=== PATIENT | male | born 1980 | race African-American/Black ===

== ENCOUNTER 2016-09-15 10:33 | Emergency (ER) | payer OTHER ==
[~2016-09-15] VITALS: Ht 185.4 cm; Wt 104.3 kg
[~2016-09-15 10:33] MED LIST: AMLO10TA2 PO; ASPI81TA9 PO; ATOR20TA58 PO; CARV12.52 PO; HYDR12.58 PO; LISI10TA2 PO; LOSA50TA2 PO
--- NOTE | 2016-09-15 10:50 | EKG ---
[facility] [address] [place] [address] Test Date: 2016-09-15 Test Time: 10:43:30 Pat Name: TAN GRUBER Department: Room: Gender: M Chief Legal Officer: : 1980 Requested By: MARIANO FLOWER Order Number: [id number] Reading MD: Dahlia Vu Measurements Intervals [place] Rate: 59 P: 82 DE: 186 QRS: 67 QRSD: 82 T: 178 QT: 396 QTc: 392 Interpretive Statements SINUS RHYTHM. MISSING LEAD V4. INVERTED T WAVES OVER THE LATERAL PRECORDIAL LEADS. Electronically Signed On 09-16-2016 21:14:21 CDT by Dahlia Vu
[2016-09-15 10:56] LABS: BASO % 1 % (0-3); EOS % 2 % (0-3); HEMATOCRIT 35.7 % (39.0-53.0); HEMOGLOBIN 12.1 g/dL (13.0-17.5); LYMPH # 1.2 x10^3/uL (1.0-4.8); LYMPH % 16 % (24-48); MEAN CORPUSCULAR HEMOGLOBIN 29 pg (25-35); MEAN CORPUSCULAR HGB CONC 34 g/dL (31-37); MEAN CORPUSCULAR VOLUME 87 fL (79-100); MONO % 8 % (0-9); NEUT % 74 % (31-73); PLATELET COUNT 242 x10^3/uL (140-400); RED BLOOD COUNT 4.13 x10^6/uL (4.30-5.70); RED CELL DISTRIBUTION WIDTH 14.1 % (11.5-14.5); WHITE BLOOD COUNT 7.4 x10^3/uL (4.0-11.0)
[2016-09-15] MEDS ORDERED: ASPIRIN 81 MG TAB.CHEW PO ONE (11:00)
[2016-09-15 11:10] LABS: CALCIUM 9.6 mg/dL (8.5-10.1); GFR 45.5; POTASSIUM 4.9 mmol/L (3.5-5.1)
--- NOTE | 2016-09-15 11:16 | RAD ---
Portable chest, 09/15/2016: History: Chest pain Comparison is made to a study from 06/25/2016. The heart is at the upper limits of normal in size. The pulmonary vascularity has improved and is now within normal limits. No pulmonary infiltrates are present. There is no evidence of pleural fluid. IMPRESSION: No acute cardiopulmonary abnormality is detected.
[2016-09-15 11:17] LABS: ALBUMIN 4.3 g/dL (3.4-5.0); DIRECT BILIRUBIN 0.1 mg/dL (0.0-0.2); TOTAL BILIRUBIN 0.4 mg/dL (0.2-1.0); TOTAL PROTEIN 7.6 g/dL (6.4-8.2)
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
[2016-09-15] MEDS ORDERED: ASPI81TA2 PO (11:47)
[2016-09-15 13:00] VITALS: BP 122/67
== END 2016-09-15 13:18 | disposition home or self-care (01) ==
LOC: ER 10:33 → EEVIPCON 10:33 → ER 13:18
DX: R07.9 Chest pain, unspecified (principal); I10 Essential (primary) hypertension; F12.10 Cannabis abuse, uncomplicated
CPT/HCPCS: 36415; 71010; 80048; 80076; 83690; 83880; 84484; 85027; 93005; 99285-25

== ENCOUNTER 2017-01-25 15:52 | Inpatient (IN) | payer OTHER ==
[2017-01-25] VITALS (7 sets, daily range): BP systolic 103–181; BP diastolic 48–100
[~2017-01-25] VITALS: Ht 185.4 cm; Wt 100.2 kg
[~2017-01-25 15:52] MED LIST changes: +ASPI-612 PO; +ASPI-630 PO; -ASPI81TA9 PO
[2017-01-25] MEDS ORDERED: METOPROLOL TARTRATE 5 MG/5 ML VIAL. IVP ONE (16:15)
--- NOTE | 2017-01-25 16:17 | EKG ---
[facility] [address] [place] [address] Test Date: 2017-01-25 Test Time: 15:58:34 Pat Name: TAN GRUBER Department: Room: Gender: M Anne[employer] Torch Operator: : 1980 Requested By: NICKO OLIVAREZ Order Number: [id number] Reading MD: Adan Stubbs Measurements Intervals [place] Rate: 73 P: 30 ND: 188 QRS: 63 QRSD: 86 T: 54 QT: 350 QTc: 389 Interpretive Statements SINUS RHYTHM NON-SPECIFIC ST/T CHANGES Electronically Signed On 01-28-2017 8:43:05 CDT by Adan Stubbs
[2017-01-25 16:18] LABS: BASO % 1 % (0-3); EOS % 1 % (0-3); HEMATOCRIT 42.4 % (39.0-53.0); LYMPH # 1.2 x10^3/uL (1.0-4.8); LYMPH % 20 % (24-48); MEAN CORPUSCULAR HEMOGLOBIN 29 pg (25-35); MEAN CORPUSCULAR HGB CONC 33 g/dL (31-37); MEAN CORPUSCULAR VOLUME 87 fL (79-100); MONO % 9 % (0-9); NEUT % 69 % (31-73); PLATELET COUNT 264 x10^3/uL (140-400); RED BLOOD COUNT 4.89 x10^6/uL (4.30-5.70); RED CELL DISTRIBUTION WIDTH 13.5 % (11.5-14.5); WHITE BLOOD COUNT 5.9 x10^3/uL (4.0-11.0)
[2017-01-25] MEDS: NITROGLYCERIN SUBLINGUAL 0.4 MG BOTTLE OF 25. SL PRN ×2 (16:19→16:47)
[2017-01-25 16:27] LABS: PROTHROMBIN TIME PATIENT 12.5 SEC (11.7-14.0)
--- NOTE | 2017-01-25 16:52 | RAD ---
PORTABLE CHEST 1V Clinical Indication: cp Comparison: Chest radiograph dated 09/15/2016 Findings: Low lung volume. Heterogeneous airspaces opacities in the right perihilar region. Normal pulmonary vasculature. No pleural effusion or pneumothorax. Stable cardiomegaly. The great vessels of the thorax are stable. No acute osseous abnormality. IMPRESSION: 1. Heterogeneous airspace opacities in the right perihilar region. Findings could relate to atelectasis, although an infectious process would be difficult to exclude. Recommend radiographic follow-up to resolution. 2. Stable cardiomegaly.
[2017-01-25 17:12] LABS: CREATININE 1.6 mg/dL (0.7-1.3); GFR 58.8; POTASSIUM 4.7 mmol/L (3.5-5.1)
[2017-01-25 17:18] LABS: DIRECT BILIRUBIN 0.1 mg/dL (0.0-0.2); MAGNESIUM 2.1 mg/dL (1.8-2.4); TOTAL BILIRUBIN 0.2 mg/dL (0.2-1.0); TOTAL PROTEIN 7.6 g/dL (6.4-8.2)
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
[2017-01-25] MEDS ORDERED: NITROGLYCERIN SUBLINGUAL 0.4 MG BOTTLE OF 25. SL PRN (18:45)
[2017-01-25] MEDS ORDERED: ASPIRIN 325 MG TABLET PO ONE (21:00)
[2017-01-25] MEDS ORDERED: CARVEDILOL 12.5 MG TABLET. PO SCH (21:00)
[2017-01-25] MEDS: ATORVASTATIN CALCIUM 20 MG TABLET PO SCH (21:51)
[2017-01-25] MEDS: oxyCODONE/APAP 5/325 1 TAB TABLET PO PRN (21:52)
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
[2017-01-26] VITALS (23 sets, daily range): BP systolic 126–196; BP diastolic 51–109
[2017-01-26 01:32] LABS: CALCIUM 9.4 mg/dL (8.5-10.1); CREATININE 1.7 mg/dL (0.7-1.3); GFR 54.9; POTASSIUM 4.4 mmol/L (3.5-5.1)
--- NOTE | 2017-01-26 01:38 | ACF ---
Admission Forms Criteria HYPERTENSION Clinical Indications for Admission to Inpatient Care ( Place "X" for any and all applicable criteria): Admission is indicated for 1 or more of the following(1)(2)(3)(4)(5)(6)(7)(8)(9) (10): [ ]I. Hypertensive emergency, with evidence of acute and progressing target organ disease as indicated by 1 or more of the following: [ ]a) Hypertensive encephalopathy (eg, confusion, altered mental status) [ ]b) Cerebral infarction [ ]c) Intracranial hemorrhage [ ]d) Myocardial ischemia or infarction [ ]e) Heart failure (eg. Pulmonary edema) [ ]f) Aortic dissection [ ]g) Increased creatinine (new) with reduction of more than 50% in estimated glomerular filtration rate from baseline [ ]h) Seizure [ ]i) Papilledema [ ]j) Retinal hemorrhage [ ]k) Microangiopathic hemolytic anemia [ ]l) Other significant finding secondary to hypertension [ ]II. Adrenergic or sympathomimetic crisis (eg, severe hypertension due to pheochromocytoma crisis, cocaine or amphetamine intoxication, or clonidine withdrawal) [X]III. Severe hypertension (SBP greater than 180 mmHg or DBP greater than 110 mmHg or greater than the 95th percentile for age, gender, and height in pediatric patients) that cannot be controlled (eg, to SBP less than 160 mmHg and DBP less than 100 mmHg in adults) by treatment with oral medication in emergency department or observation care Extended stay beyond goal length of stay may be needed for(11)(12)(13): [ ]a) Persistent hypertensive encephalopathy [ ]b) Continuation of pulmonary edema [ ]c) Recurring or persistent severe hypertension [ ]d) Target organ damage (eg, angina, stroke, aortic dissection) The original [employer] content created by [employer] has been revised. The portions of the content which have been revised are identified through the use of italic text, and [email or web address] has neither reviewed nor approved the modified material. All other unmodified content is copyright [employer]. Please see references footnoted in the original [employer] edition 2014 Admission Criteria Met?: Yes DEREJE CARCAMO Jan 26, 2017 01:38
[2017-01-26] MEDS: oxyCODONE/APAP 5/325 1 TAB TABLET PO PRN ×2 (03:49→12:14)
[2017-01-26] MEDS: LOSARTAN POTASSIUM 50 MG TABLET. PO SCH (09:00)
[2017-01-26] MEDS: amLODIPine BESYLATE 10 MG TABLET PO SCH (09:00)
[2017-01-26] MEDS: ASPIRIN 325 MG TABLET PO SCH (09:23)
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
[2017-01-26] MEDS ORDERED: LISINOPRIL 40 MG TABLET. PO ONE (12:00)
[2017-01-26] MEDS ORDERED: SPIRONOLACTONE 25 MG TABLET PO ONE (12:00)
[2017-01-26] MEDS: GABAPENTIN 300 MG CAPSULE. PO SCH ×2 (13:10→21:17)
--- NOTE | 2017-01-26 14:03 | PDOC ---
PROGRESS NOTES Chief Complaint Chief Complaint malignant HTN, htn resistant to 6 agents, including minoxidil and catapress patch x2 chest pain, 2/2 HTN, and muscular pain chronic diastolic CHF. CKD3 pt is currently incarcerated plan: fu with card dc coreg given sudhakar cont losartan, amlodipine card add hydralazine and imdur since BP STILL HIGH, off cardine drip overnight dvt ppx may need echo ok transfer out of ICU History of Present Illness History of Present Illness still chest pain, + tenderness off cardine drip overnight Vitals Vitals Vital Signs Date Time Temp Pulse Resp B/P (MAP) Pulse Ox O2 Delivery O2 Flow Rate FiO2 01/26/17 13:43 98 Room Air 01/26/17 13:38 65 162/85 01/26/17 13:03 98.3 16 98.3 Physical Exam General: Alert, Oriented X3, Cooperative, No acute distress Heart: Regular rate (SR), Normal S1, Normal S2, Other (3/6 systolic murmur to LLS border) Lungs: Clear Abdomen: Soft, No tenderness Extremities: No cyanosis, No edema Skin: No breakdown, No significant lesion Labs LABS Laboratory Tests Test 01/25/17 16:08 01/25/17 16:12 01/25/17 16:52 01/26/17 00:45 White Blood Count 5.9 x10^3/uL (4.0-11.0) Red Blood Count 4.89 x10^6/uL (4.30-5.70) Hemoglobin 14.0 g/dL (13.0-17.5) Hematocrit 42.4 % (39.0-53.0) Mean Corpuscular Volume 87 fL (79-100) Mean Corpuscular Hemoglobin 29 pg (25-35) Mean Corpuscular Hemoglobin Concent 33 g/dL (31-37) Red Cell Distribution Width 13.5 % (11.5-14.5) Platelet Count 264 x10^3/uL (140-400) Neutrophils (%) (Auto) 69 % (31-73) Lymphocytes (%) (Auto) 20 % (24-48) Monocytes (%) (Auto) 9 % (0-9) Eosinophils (%) (Auto) 1 % (0-3) Basophils (%) (Auto) 1 % (0-3) Neutrophils # (Auto) 4.0 x10^3uL (1.8-7.7) Lymphocytes # (Auto) 1.2 x10^3/uL (1.0-4.8) Monocytes # (Auto) 0.5 x10^3/uL (0.0-1.1) Eosinophils # (Auto) 0.1 x10^3/uL (0.0-0.7) Basophils # (Auto) 0.0 x10^3/uL (0.0-0.2) Prothrombin Time 12.5 SEC (11.7-14.0) Prothromb Time International Ratio 1.0 (0.8-1.1) Bedside Troponin I 0.01 ng/ml (<0.08) Sodium Level 142 mmol/L (136-145) 140 mmol/L (136-145) Potassium Level 4.7 mmol/L (3.5-5.1) 4.4 mmol/L (3.5-5.1) Chloride Level 105 mmol/L (98-107) 104 mmol/L (98-107) Carbon Dioxide Level 30 mmol/L (21-32) 29 mmol/L (21-32) Anion Gap 7 (6-14) 7 (6-14) Blood Urea Nitrogen 22 mg/dL (8-26) 20 mg/dL (8-26) Creatinine 1.6 mg/dL (0.7-1.3) 1.7 mg/dL (0.7-1.3) Estimated GFR (Cockcroft-Gault) 58.8 54.9 Glucose Level 97 mg/dL (70-99) 128 mg/dL (70-99) Calcium Level 9.0 mg/dL (8.5-10.1) 9.4 mg/dL (8.5-10.1) Magnesium Level 2.1 mg/dL (1.8-2.4) Total Bilirubin 0.2 mg/dL (0.2-1.0) Direct Bilirubin 0.1 mg/dL (0.0-0.2) Aspartate Amino Transf (AST/SGOT) 11 U/L (15-37) Alanine Aminotransferase (ALT/SGPT) 24 U/L (16-63) Alkaline Phosphatase 87 U/L (46-116) Creatine Kinase 111 U/L (39-308) Creatine Kinase MB (Mass) 1.0 ng/mL (0.0-3.6) Creatine Kinase MB Relative Index 0.9 % (0-4) Troponin I Quantitative < 0.017 ng/mL (0.000-0.055) < 0.017 ng/mL (0.000-0.055) LV-Hvn-T-Type Natriuretic Peptide 11 pg/mL (0-124) Total Protein 7.6 g/dL (6.4-8.2) Albumin 4.0 g/dL (3.4-5.0) Lipase 114 U/L (73-393) Test 01/26/17 07:15 Troponin I Quantitative < 0.017 ng/mL (0.000-0.055) Review of Systems Review of Systems no fever, chills, sob or chest pain Assessment and Plan Assessmemt and Plan Problems Medical Problems: (1) Chest pain Status: Acute Problems: Comment Review of Relevant I have reviewed the following items nolberto (where applicable) has been applied. Labs Laboratory Tests Test 01/25/17 16:08 01/25/17 16:12 01/25/17 16:52 01/26/17 00:45 White Blood Count 5.9 x10^3/uL (4.0-11.0) Red Blood Count 4.89 x10^6/uL (4.30-5.70) Hemoglobin 14.0 g/dL (13.0-17.5) Hematocrit 42.4 % (39.0-53.0) Mean Corpuscular Volume 87 fL (79-100) Mean Corpuscular Hemoglobin 29 pg (25-35) Mean Corpuscular Hemoglobin Concent 33 g/dL (31-37) Red Cell Distribution Width 13.5 % (11.5-14.5) Platelet Count 264 x10^3/uL (140-400) Neutrophils (%) (Auto) 69 % (31-73) Lymphocytes (%) (Auto) 20 % (24-48) Monocytes (%) (Auto) 9 % (0-9) Eosinophils (%) (Auto) 1 % (0-3) Basophils (%) (Auto) 1 % (0-3) Neutrophils # (Auto) 4.0 x10^3uL (1.8-7.7) Lymphocytes # (Auto) 1.2 x10^3/uL (1.0-4.8) Monocytes # (Auto) 0.5 x10^3/uL (0.0-1.1) Eosinophils # (Auto) 0.1 x10^3/uL (0.0-0.7) Basophils # (Auto) 0.0 x10^3/uL (0.0-0.2) Prothrombin Time 12.5 SEC (11.7-14.0) Prothromb Time International Ratio 1.0 (0.8-1.1) Bedside Troponin I 0.01 ng/ml (<0.08) Sodium Level 142 mmol/L (136-145) 140 mmol/L (136-145) Potassium Level 4.7 mmol/L (3.5-5.1) 4.4 mmol/L (3.5-5.1) Chloride Level 105 mmol/L (98-107) 104 mmol/L (98-107) Carbon Dioxide Level 30 mmol/L (21-32) 29 mmol/L (21-32) Anion Gap 7 (6-14) 7 (6-14) Blood Urea Nitrogen 22 mg/dL (8-26) 20 mg/dL (8-26) Creatinine 1.6 mg/dL (0.7-1.3) 1.7 mg/dL (0.7-1.3) Estimated GFR (Cockcroft-Gault) 58.8 54.9 Glucose Level 97 mg/dL (70-99) 128 mg/dL (70-99) Calcium Level 9.0 mg/dL (8.5-10.1) 9.4 mg/dL (8.5-10.1) Magnesium Level 2.1 mg/dL (1.8-2.4) Total Bilirubin 0.2 mg/dL (0.2-1.0) Direct Bilirubin 0.1 mg/dL (0.0-0.2) Aspartate Amino Transf (AST/SGOT) 11 U/L (15-37) Alanine Aminotransferase (ALT/SGPT) 24 U/L (16-63) Alkaline Phosphatase 87 U/L (46-116) Creatine Kinase 111 U/L (39-308) Creatine Kinase MB (Mass) 1.0 ng/mL (0.0-3.6) Creatine Kinase MB Relative Index 0.9 % (0-4) Troponin I Quantitative < 0.017 ng/mL (0.000-0.055) < 0.017 ng/mL (0.000-0.055) UF-Woa-W-Type Natriuretic Peptide 11 pg/mL (0-124) Total Protein 7.6 g/dL (6.4-8.2) Albumin 4.0 g/dL (3.4-5.0) Lipase 114 U/L (73-393) Test 01/26/17 07:15 Troponin I Quantitative < 0.017 ng/mL (0.000-0.055) Laboratory Tests Test 01/25/17 16:08 01/25/17 16:12 01/25/17 16:52 01/26/17 00:45 White Blood Count 5.9 x10^3/uL (4.0-11.0) Red Blood Count 4.89 x10^6/uL (4.30-5.70) Hemoglobin 14.0 g/dL (13.0-17.5) Hematocrit 42.4 % (39.0-53.0) Mean Corpuscular Volume 87 fL (79-100) Mean Corpuscular Hemoglobin 29 pg (25-35) Mean Corpuscular Hemoglobin Concent 33 g/dL (31-37) Red Cell Distribution Width 13.5 % (11.5-14.5) Platelet Count 264 x10^3/uL (140-400) Neutrophils (%) (Auto) 69 % (31-73) Lymphocytes (%) (Auto) 20 % (24-48) Monocytes (%) (Auto) 9 % (0-9) Eosinophils (%) (Auto) 1 % (0-3) Basophils (%) (Auto) 1 % (0-3) Neutrophils # (Auto) 4.0 x10^3uL (1.8-7.7) Lymphocytes # (Auto) 1.2 x10^3/uL (1.0-4.8) Monocytes # (Auto) 0.5 x10^3/uL (0.0-1.1) Eosinophils # (Auto) 0.1 x10^3/uL (0.0-0.7) Basophils # (Auto) 0.0 x10^3/uL (0.0-0.2) Prothrombin Time 12.5 SEC (11.7-14.0) Prothromb Time International Ratio 1.0 (0.8-1.1) Bedside Troponin I 0.01 ng/ml (<0.08) Sodium Level 142 mmol/L (136-145) 140 mmol/L (136-145) Potassium Level 4.7 mmol/L (3.5-5.1) 4.4 mmol/L (3.5-5.1) Chloride Level 105 mmol/L (98-107) 104 mmol/L (98-107) Carbon Dioxide Level 30 mmol/L (21-32) 29 mmol/L (21-32) Anion Gap 7 (6-14) 7 (6-14) Blood Urea Nitrogen 22 mg/dL (8-26) 20 mg/dL (8-26) Creatinine 1.6 mg/dL (0.7-1.3) 1.7 mg/dL (0.7-1.3) Estimated GFR (Cockcroft-Gault) 58.8 54.9 Glucose Level 97 mg/dL (70-99) 128 mg/dL (70-99) Calcium Level 9.0 mg/dL (8.5-10.1) 9.4 mg/dL (8.5-10.1) Magnesium Level 2.1 mg/dL (1.8-2.4) Total Bilirubin 0.2 mg/dL (0.2-1.0) Direct Bilirubin 0.1 mg/dL (0.0-0.2) Aspartate Amino Transf (AST/SGOT) 11 U/L (15-37) Alanine Aminotransferase (ALT/SGPT) 24 U/L (16-63) Alkaline Phosphatase 87 U/L (46-116) Creatine Kinase 111 U/L (39-308) Creatine Kinase MB (Mass) 1.0 ng/mL (0.0-3.6) Creatine Kinase MB Relative Index 0.9 % (0-4) Troponin I Quantitative < 0.017 ng/mL (0.000-0.055) < 0.017 ng/mL (0.000-0.055) PZ-Pit-Y-Type Natriuretic Peptide 11 pg/mL (0-124) Total Protein 7.6 g/dL (6.4-8.2) Albumin 4.0 g/dL (3.4-5.0) Lipase 114 U/L (73-393) Test 01/26/17 07:15 Troponin I Quantitative < 0.017 ng/mL (0.000-0.055) Medications Current Medications Nitroglycerin (Nitrostat) 0.4 mg PRN Q5MIN PRN SL CP RATING > 1/10 Last administered on 01/25/17 16:47; Start 01/25/17 at 16:15; Stop 01/26/17 at 16:14 Metoprolol Tartrate (Lopressor) 5 mg 1X ONCE IVP Last administered on 16:21; Start 01/25/17 at 16:15; Stop 01/25/17 at 16:16; Status DC Nicardipine HCl 50 mg/Sodium Chloride 270 ml @ 0 mls/hr CONT PRN IV SEE I/O RECORD Last administered on 01/25/17 18:43; Start 01/25/17 at 18:30; Stop 01/26 at 13:07; Status DC Nitroglycerin (Nitrostat) 0.4 mg PRN Q5MIN PRN SL CHEST PAIN; Start 01/25/17 at 18:45; Stop 01/26/17 at 18:44 Amlodipine Besylate (Norvasc) 10 mg DAILY PO Last administered on 01/26/17 09: 00; Start 01/26/17 at 09:00 Atorvastatin Calcium (Lipitor) 20 mg QHS PO Last administered on 01/25/17 21: 51; Start 01/25/17 at 21:00 Carvedilol (Coreg) 12.5 mg BIDWMEALS PO Last administered on 01/25/17 21:51; Start 01/25/17 at 21:00; Stop 01/26/17 at 09:13; Status DC Losartan Potassium (Cozaar) 50 mg DAILY PO Last administered on 01/26/17 09:00 ; Start 01/26/17 at 09:00 Aspirin (Stretch Aspirin) 325 mg DAILYWBKFT PO Last administered on 01/26/17 09: 23; Start 01/26/17 at 08:00 Aspirin (Stretch Aspirin) 325 mg 1X ONCE PO Last administered on 01/25/17 21:50 ; Start 01/25/17 at 21:00; Stop 01/25/17 at 21:01; Status DC Oxycodone/ Acetaminophen (Percocet 5/325) 1 tab PRN Q4HRS PRN PO PAIN Last administered on 01/26/17 12:14; Start 01/25/17 at 21:15 Spironolactone (Aldactone) 50 mg 1X ONCE PO Last administered on 01/26/17 12: 14; Start 01/26/17 at 12:00; Stop 01/26/17 at 12:01; Status DC Lisinopril (Prinivil) 40 mg 1X ONCE PO ; Start 01/26/17 at 12:00; Stop at 12:01; Status DC Gabapentin (Neurontin) 300 mg BID PO Last administered on 01/26/17 13:10; Start 01/26/17 at 13:00 Hydralazine HCl (Apresoline) 100 mg BID PO Last administered on 01/26/17 13:38 ; Start 01/26/17 at 13:00 Isosorbide Mononitrate (Imdur) 60 mg DAILY PO ; Start 01/26/17 at 14:00 Pantoprazole Sodium (Protonix) 40 mg DAILYAC PO ; Start 01/26/17 at 16:30 Aspirin (Ecotrin) 81 mg DAILYWBKFT PO ; Start 01/26/17 at 14:00 Active Scripts Active Aspirin 81 Mg Tab.chew 1 Tab PO DAILY Cozaar (Losartan Potassium) 50 Mg Tablet 50 Mg PO DAILY Carvedilol 12.5 Mg Tablet 12.5 Mg PO BIDWMEALS Atorvastatin Calcium 20 Mg Tablet 20 Mg PO QHS Aspirin Ec (Aspirin) 81 Mg Tablet.dr 81 Mg PO DAILYWBKFT Amlodipine Besylate 10 Mg Tablet 10 Mg PO DAILY Vitals/I & O Vital Sign - Last 24 Hours 01/25/17 01/25/17 01/25/17 01/25/17 15:52 16:00 16:18 16:19 Temp 98.2 98.2 Pulse 63 70 68 69 Resp 18 13 B/P (MAP) 163/122 (136) 163/122 (136) 177/115 (135) 177/115 Pulse Ox 96 96 97 O2 Delivery Room Air Room Air Room Air 01/25/17 01/25/17 01/25/17 01/25/17 16:21 16:22 16:23 16:24 Pulse 69 74 72 78 Resp 10 11 13 B/P (MAP) 177/115 174/112 (132) 165/101 (122) 168/104 (125) Pulse Ox 96 94 93 O2 Delivery Room Air Room Air Room Air 01/25/17 01/25/17 01/25/17 01/25/17 16:25 16:40 16:46 16:47 Pulse 70 54 52 54 Resp 11 14 10 B/P (MAP) 142/94 (110) 149/89 (109) 174/105 (128) 174/105 Pulse Ox 93 O2 Delivery Room Air Room Air Room Air 01/25/17 01/25/17 01/25/17 01/25/17 16:55 17:10 17:25 17:40 Pulse 68 60 52 54 Resp 14 13 14 14 B/P (MAP) 138/90 (106) 142/86 (104) 141/90 (107) 148/92 (110) O2 Delivery Room Air Room Air Room Air Room Air 01/25/17 01/25/17 01/25/17 01/25/17 17:55 18:10 18:25 18:44 Pulse 52 58 52 52 Resp 13 17 11 B/P (MAP) 185/104 (131) 195/106 (135) 185/121 (142) 156/101 (119) O2 Delivery Room Air Room Air Room Air Room Air 01/25/17 01/25/17 01/25/17 01/25/17 18:50 18:55 19:00 19:05 Pulse 62 58 74 82 Resp 15 11 27 22 B/P (MAP) 160/102 (121) 140/101 (114) 203/113 (143) 186/109 (134) Pulse Ox 95 96 O2 Delivery Room Air Room Air Room Air Room Air 01/25/17 01/25/17 01/25/17 01/25/17 19:10 19:15 19:20 19:29 Pulse 88 84 84 68 Resp 21 22 B/P (MAP) 179/105 (129) 185/96 (125) 233/132 (165) 164/97 (119) O2 Delivery Room Air Room Air Room Air Room Air 01/25/17 01/25/17 01/25/17 01/25/17 19:30 19:35 19:40 19:45 Pulse 76 84 84 80 Resp 14 25 15 B/P (MAP) 187/110 (135) 213/103 (139) 214/103 (140) 170/73 (105) O2 Delivery Room Air Room Air Room Air Room Air 01/25/17 01/25/17 01/25/17 01/25/17 19:50 19:55 20:00 20:15 Temp 98.6 98.6 Pulse 86 78 86 88 Resp 15 17 16 16 B/P (MAP) 165/80 (108) 185/100 (128) 181/100 (127) 162/88 (112) Pulse Ox 97 97 O2 Delivery Room Air Room Air Room Air Room Air 01/25/17 01/25/17 01/25/17 01/25/17 20:30 20:45 21:00 21:51 Pulse 80 82 78 75 Resp 16 16 16 B/P (MAP) 145/77 (99) 127/75 (92) 137/90 (106) 158/84 Pulse Ox 97 97 97 O2 Delivery Room Air Room Air Room Air 01/25/17 01/25/17 01/25/17 01/25/17 21:52 22:00 22:52 23:00 Pulse 76 70 Resp 16 16 16 16 B/P (MAP) 146/80 (102) 103/48 (66) Pulse Ox 97 96 92 O2 Delivery Room Air Room Air 01/26/17 01/26/17 01/26/17 01/26/17 00:00 01:00 02:00 03:00 Temp 97.6 97.6 Pulse 74 65 65 60 Resp 16 12 12 12 B/P (MAP) 142/80 (100) 145/81 (102) 145/94 (111) 145/90 (108) Pulse Ox 95 94 94 94 O2 Delivery Room Air Room Air Room Air Room Air 01/26/17 01/26/17 01/26/17 01/26/17 03:49 04:00 05:00 06:00 Temp 97.6 97.6 Pulse 56 54 58 Resp 12 12 12 12 B/P (MAP) 152/90 (110) 153/95 (114) 155/95 (115) Pulse Ox 94 95 96 96 O2 Delivery Room Air Room Air Room Air 01/26/17 01/26/17 01/26/17 01/26/17 07:00 08:00 08:00 09:00 Temp 98.3 98.3 Pulse 62 50 58 Resp 16 15 B/P (MAP) 148/89 (108) 162/82 (108) 155/95 Pulse Ox 95 94 O2 Delivery Room Air Room Air Room Air 01/26/17 01/26/17 01/26/17 01/26/17 09:00 09:00 10:00 11:00 Pulse 58 64 64 62 Resp 18 20 16 B/P (MAP) 155/95 145/51 (82) 175/109 (131) 196/99 (131) Pulse Ox 97 95 98 O2 Delivery Room Air Room Air Room Air 01/26/17 01/26/17 01/26/17 01/26/17 12:00 12:00 12:14 13:03 Temp 98.3 98.3 Pulse 62 80 Resp 18 16 16 B/P (MAP) 176/105 (128) 170/90 (116) Pulse Ox 98 98 98 O2 Delivery Room Air Room Air Room Air Room Air 01/26/17 01/26/17 13:38 13:43 Pulse 65 B/P (MAP) 162/85 Pulse Ox 98 O2 Delivery Room Air Intake and Output 01/25/17 01/25/17 01/26/17 15:00 23:00 07:00 Intake Total 1024 ml Output Total 400 ml Balance 624 ml HAWK CAMPBELL MD Jan 26, 2017 14:03
[2017-01-26] MEDS ORDERED: ACETAMINOPHEN 325 MG TABLET. PO PRN (14:15)
[2017-01-26] MEDS ORDERED: traMADol 50 MG TABLET PO PRN (14:15)
[2017-01-26] MEDS ORDERED: MORPHINE SULFATE 2 MG/ML DISP.SYRIN. IV PRN (14:15)
[2017-01-26] MEDS ORDERED: DOCUSATE SODIUM 100 MG CAPSULE. PO PRN (14:15)
[2017-01-26] MEDS ORDERED: hydrALAZINE 20 MG/ML VIAL. IVP PRN (14:15)
[2017-01-26] MEDS ORDERED: ONDANSETRON PF 4 MG/2 ML VIAL. IV PRN (14:15)
[2017-01-26] MEDS: PANTOPRAZOLE 40 MG TABLET.DR. PO SCH (17:58)
[2017-01-26] MEDS: ISOSORBIDE MONONITRATE ER 30 MG TAB.ER.24H PO SCH (17:58)
[2017-01-26] MEDS: ENOXAPARIN 40 MG/0.4 ML SYRINGE. SQ SCH (18:01)
[2017-01-26] MEDS: ASPIRIN ENTERIC COATED 81 MG TABLET.DR. PO SCH (18:01)
[2017-01-26] MEDS: ATORVASTATIN CALCIUM 20 MG TABLET PO SCH (21:17)
[2017-01-27] VITALS (13 sets, daily range): BP systolic 126–152; BP diastolic 62–107
[2017-01-27 05:13] LABS: BASO % 1 % (0-3); EOS % 2 % (0-3); HEMOGLOBIN 13.7 g/dL (13.0-17.5); LYMPH # 1.9 x10^3/uL (1.0-4.8); LYMPH % 29 % (24-48); MEAN CORPUSCULAR HEMOGLOBIN 29 pg (25-35); MEAN CORPUSCULAR HGB CONC 33 g/dL (31-37); MEAN CORPUSCULAR VOLUME 86 fL (79-100); MONO % 8 % (0-9); NEUT % 61 % (31-73); PLATELET COUNT 255 x10^3/uL (140-400); RED BLOOD COUNT 4.76 x10^6/uL (4.30-5.70); RED CELL DISTRIBUTION WIDTH 13.4 % (11.5-14.5); WHITE BLOOD COUNT 6.5 x10^3/uL (4.0-11.0)
[2017-01-27 05:48] LABS: CALCIUM 8.7 mg/dL (8.5-10.1); CREATININE 1.7 mg/dL (0.7-1.3); GFR 54.9; POTASSIUM 4.2 mmol/L (3.5-5.1)
[2017-01-27] MEDS: amLODIPine BESYLATE 10 MG TABLET PO SCH (08:22)
[2017-01-27] MEDS: ASPIRIN ENTERIC COATED 81 MG TABLET.DR. PO SCH (08:24)
[2017-01-27] MEDS: GABAPENTIN 300 MG CAPSULE. PO SCH (08:24)
[2017-01-27] MEDS: ISOSORBIDE MONONITRATE ER 30 MG TAB.ER.24H PO SCH (08:24)
[2017-01-27] MEDS: LOSARTAN POTASSIUM 50 MG TABLET. PO SCH (08:25)
[2017-01-27] MEDS: PANTOPRAZOLE 40 MG TABLET.DR. PO SCH (08:25)
[2017-01-27] MEDS: ASPIRIN 325 MG TABLET PO SCH (08:27)
[2017-01-27] MEDS: oxyCODONE/APAP 5/325 1 TAB TABLET PO PRN (13:01)
[2017-01-27] MEDS ORDERED: ISOS30TA4 PO (13:57)
[2017-01-27] MEDS ORDERED: HYDR-2869 PO (13:57)
--- NOTE | 2017-01-27 13:58 | PDOC3 ---
Discharge Summary [facility] Date of Admission: Jan 25, 2017 Discharge Date: Jan 27, 2017 Admitting Diagnosis malignant HTN, htn resistant to 6 agents, including minoxidil and catapress patch x2 chest pain, 2/2 HTN, and muscular pain chronic diastolic CHF. CKD3 pt is currently incarcerated Problems: Final Diagnosis CONSULTS card Brief Hospital Course Harshil is a 36 old M, from assisted, was sent for chest pain. He said he is taking his HTN meds in the assisted, but not sure what they are. He feels some substernal chest pain, tenderness, also has some occipital headache, no neurologic deficit. IN ER, HTN urgency. pt was in ICU FOR cardine drip, then add 4 po HTN meds. now pt still has mild headache, chest pain gone, BP slightly high, CE NEG. the chest pain is likely 2/2 htn and muscular skeletal pain. dc to assisted. dc time 35min. General: Alert, Oriented X3, Cooperative, No acute distress Heart: Regular rate (SR), Normal S1, Normal S2, Other (3/6 systolic murmur to LLS border) Lungs: Clear Abdomen: Soft, No tenderness Extremities: No cyanosis, No edema Skin: No breakdown, No significant lesionMr. Patient History: Problems: Disposition assisted CONDITION AT DISCHARGE: Improved Diet low salt Scheduled Amlodipine Besylate (Amlodipine Besylate), 10 MG PO DAILY Aspirin (Aspirin Ec), 81 MG PO DAILYWBKFT Atorvastatin Calcium (Atorvastatin Calcium), 20 MG PO QHS Hydralazine Hcl (Hydralazine Hcl), 100 MG PO BID Isosorbide Mononitrate (Isosorbide Mononitrate Er), 60 MG PO DAILY Losartan Potassium (Cozaar), 50 MG PO DAILY Discontinued Medications Aspirin (Aspirin), 1 TAB PO DAILY Carvedilol (Carvedilol), 12.5 MG PO BIDWMEALS Follow Up pcp in 2 weeks HAWK CAMPBELL MD Jan 27, 2017 13:58
[2017-01-27] MEDS: ENOXAPARIN 40 MG/0.4 ML SYRINGE. SQ SCH (15:00)
--- NOTE | 2017-01-27 15:13 | PDOC ---
CARDIO Progress Notes Date and Time Date of Service 01/27/2017 Time of Evaluation 1350 Subjective Subjective: No Chest Pain, No shortness of breath, No Palpitations, No Dizziness, Other (has mild SON) Vitals Vitals Vital Signs Date Time Temp Pulse Resp B/P (MAP) Pulse Ox O2 Delivery O2 Flow Rate FiO2 01/27/17 12:00 98.2 67 12 136/72 (93) 93 Room Air 98.2 Weight Weight [ ] Input and Output Intake and Output Intake and Output 01/27/17 07:00 Intake Total 1300 ml Output Total 800 ml Balance 500 ml Intake Oral 1300 ml Output Urine Total 800 ml # Voids 2 Laboratory Labs Laboratory Tests Test 01/27/17 04:00 White Blood Count 6.5 x10^3/uL (4.0-11.0) Red Blood Count 4.76 x10^6/uL (4.30-5.70) Hemoglobin 13.7 g/dL (13.0-17.5) Hematocrit 41.0 % (39.0-53.0) Mean Corpuscular Volume 86 fL (79-100) Mean Corpuscular Hemoglobin 29 pg (25-35) Mean Corpuscular Hemoglobin Concent 33 g/dL (31-37) Red Cell Distribution Width 13.4 % (11.5-14.5) Platelet Count 255 x10^3/uL (140-400) Neutrophils (%) (Auto) 61 % (31-73) Lymphocytes (%) (Auto) 29 % (24-48) Monocytes (%) (Auto) 8 % (0-9) Eosinophils (%) (Auto) 2 % (0-3) Basophils (%) (Auto) 1 % (0-3) Neutrophils # (Auto) 3.9 x10^3uL (1.8-7.7) Lymphocytes # (Auto) 1.9 x10^3/uL (1.0-4.8) Monocytes # (Auto) 0.5 x10^3/uL (0.0-1.1) Eosinophils # (Auto) 0.1 x10^3/uL (0.0-0.7) Basophils # (Auto) 0.0 x10^3/uL (0.0-0.2) Sodium Level 138 mmol/L (136-145) Potassium Level 4.2 mmol/L (3.5-5.1) Chloride Level 100 mmol/L (98-107) Carbon Dioxide Level 30 mmol/L (21-32) Anion Gap 8 (6-14) Blood Urea Nitrogen 21 mg/dL (8-26) Creatinine 1.7 mg/dL (0.7-1.3) Estimated GFR (Cockcroft-Gault) 54.9 Glucose Level 107 mg/dL (70-99) Calcium Level 8.7 mg/dL (8.5-10.1) Physical Exam HEENT: Neck Supple W Full Motion Chest: Symmetric LUNGS: Clear to Auscultation Heart: S1S2, RRR (SR) Abdomen: Soft N/T Extremities: No Calf Tenderness Neurology: alert, oriented, follow commands Assessment Assessment 1. Accelerated HTN: much better 2. Atypical CP: reproducible with palpation. Doubt ACS. Likely MSK/GI 3. CKD: prior renal duplex neg for SPRING 4. Valvular insufficiency Recommendations 1. Continue present changes in his regimen. Norvasc/losartan/hydralazine/imdur 2. May DC to correctional facility per cardiac standpoint. DILIP KAMINSKI CAGE MANAGER Jan 27, 2017 15:13
== END 2017-01-27 15:55 | DRG 292 ==
LOC: ER 15:52 → EEVIPCON 15:53 → 1 WEST ICU 18:22
PROVIDERS: ADMIT Internal Medicine; ATTEND Internal Medicine
DX: I13.0 Hypertensive heart and chronic kidney disease with heart failure and stage 1 through stage 4 chronic kidney disease, or unspecified chronic kidney disease (principal); I50.32 Chronic diastolic (congestive) heart failure; I16.0 Hypertensive urgency; I38 Endocarditis, valve unspecified; R07.89 Other chest pain; N18.3 Chronic kidney disease, stage 3 (moderate); E78.5 Hyperlipidemia, unspecified; F41.9 Anxiety disorder, unspecified; I20.9 Angina pectoris, unspecified; F12.90 Cannabis use, unspecified, uncomplicated; Z82.49 Family history of ischemic heart disease and other diseases of the circulatory system
CPT/HCPCS: 36415; 71010; 80048; 80076; 82553; 83690; 83735; 83880; 84484; 85027; 85610; 87641; 93005; 96365; 96375; J1650; J3490; J7050; 99285-25; J7030